=== PATIENT | male | born 1980 | race Caucasian/White ===

== ENCOUNTER 2019-08-23 12:58 | Emergency (ER) | payer OTHER ==
[~2019-08-23] VITALS: Ht 185.4 cm; Wt 81.7 kg
--- NOTE | ~2019-08-23 | EMS ---
[facility] [address] [place] [address] EMS Patient Care Report Name: THERESE GRISSOM Room #: REG [facility] JOSEPHAmna#: [id number] Admission: 08/23/19 Attend Phys: Discharge: Date of : 84 Report #: [id number] THIS REPORT FOR: //name// Report Transmitted: 08/23/2019 13:40 EMS Care Summary [place], [place]/[facility] Incident [id number] @ 08/23/2019 12:34 Incident Location [address] [place] [id number] Patient THERESE GRISSOM Male, 38 Years 1980 Patient Address HOMELESS Patient History Attention Deficit Hyperactivity Disorder (ADHD), Patient Allergies No known allergies, Patient Medications Adderall, Chief Complaint PSYCH Disposition Transported No Lights/Golden Dispatch Reason Overdose/Poisoning/Ingestion Transported To [facility] Narrative DISPATCHED TO AN OVERDOSE. ARRIVED ON SCENE TO FIND MALE PATIENT SITTING AGAINST THE WALL OF A BUSINESS. MALE SAID THAT HE WAS THIRSTY AND CANNOT STOP TALKING TO HIMSELF. HE DENIED DRUG AND ALCOHOL USE. HE SAID HE WOULD LIKE TO BE SEEN AT THE HOSPITAL. PATIENT WAS ASSISTED IN GETTING IN THE AMBULANCE, SEATED ON THE BENCH, SECURED WITH SEATBELTS AND VITALS WERE OBTAINED. PATIENT WAS [facility] [address] [place] [address] EMS Patient Care Report Name: THERESE GRISSOM Room #: REG ER Javed#: [id number] Admission: 08/23/19 Attend Phys: Discharge: Date of : 84 Report #: [id number] TRANSPORTED AND HOSPITAL WITH VITALS MONITORED. UPON ARRIVAL PATIENT WAS ASSISED IN WALKING INTO THE ED AND SEATED ON A HALLWAY BED. PATEINT CARE WAS TURNED OVER TO ED NURSING STAFF. Initial Vitals @12:41P: 105,R: 18,BP: 147/92,GCS: 14,SpO2: 97,Revised Trauma: 12, @12:48P: 105,R: 18,BP: 130/86,Pain: 0/10,GCS: 14,CO: 3,SpO2: 96,Revised Trauma: 12, Assessments @12:39MENTAL:Hallucinations,Person Oriented,Time Oriented,Event Oriented,Place Oriented,SKIN:No Abnormalities,HEENT:Head/Face: No Abnormalities,Eyes: No Abnormalities,Neck/Airway: No Abnormalities,LUNG SOUNDS:General: No Abnormalities,Left Upper: No Abnormalities,Right Upper: No Abnormalities,Left Lower: No Abnormalities,Right Lower: No Abnormalities,ABDOMEN:General: No Abnormalities,Left Upper: No Abnormalities,Right Upper: No Abnormalities,Left Lower: No Abnormalities,Right Lower: No Abnormalities,PELVIS//GI:No Abnormalities,EXTREMITIES:Left Arm: No Abnormalities,Right Arm: No Abnormalities,Left Leg: No Abnormalities,Right Leg: No Abnormalities,PULSE:NEURO:No Abnormalities, Impression Behavioral/psychiatric episode Procedures @12:39ALS AssessmentResponse: UnchangedSucceeded Timeline 12:31,Call Received 12:31,Dispatch Notified 12:34,Dispatched 12:34,En Route 12:37,On Scene 12:39,At Patient 12:39,ALS Assessment,Response: UnchangedSucceeded, 12:41,BP: 147/92 M,PULSE: 105,RR: 18 R,SPO2: 97 Ox,ETCO2: ,BG: ,PAIN: ,GCS: 14, 12:46,Depart Scene 12:48,BP: 130/86 M,PULSE: 105,RR: 18 R,SPO2: 96 Ox,ETCO2: ,BG: ,PAIN: 0,GCS: 14, 12:54,At Destination 13:08,Call Closed Disclaimer v1.1 Copyright 2020 [employer] This EMS Care Summary contains data elements from the applicable legal record (which may be displayed differently). It is designed to provide pertinent [address] [address] EMS Patient Care Report Name: THERESE GRISSOM Room #: REG YOMAIRA Burt#: [id number] Admission: 08/23/19 Attend Phys: Discharge: Date of : 84 Report #: [id number] information for the following purposes: continuity of care, clinical quality, and state data reporting. The complete legal record is available to ED staff and administrators of the receiving hospital in [employer]'s Patient Tracker. All data is provided "as is."
[2019-08-23] MEDS ORDERED: ADDERALL 30 MG30 MG PO (13:34)
[2019-08-23] MEDS ORDERED: TRAZODONE 150150 M1 PO (13:35)
[2019-08-23] MEDS ORDERED: ALPRAZOLAM XR3 MG PO (13:35)
[2019-08-23 14:45] LABS: AMP/METHAMP POSITIVE (Negative); BARBITURATES Negative (Negative); BENZODIAZEPINES Negative (Negative); COCAINE Negative (Negative); METHADONE Negative (Negative); OPIATES Negative (Negative); PCP Negative (Negative)
[2019-08-23 15:16] LABS: URINE BILIRUBIN NEGATIVE (Negative); URINE BLOOD 3+ (Negative); URINE CLARITY CLEAR; URINE COLOR YELLOW; URINE GLUCOSE-RANDOM* NEGATIVE (Negative); URINE KETONES NEGATIVE (Negative); URINE LEUKOCYTES-REFLEX NEGATIVE (Negative); URINE NITRITE-REFLEX NEGATIVE (Negative); URINE PROTEIN (DIPSTICK) NEGATIVE (Negative); URINE SPECIFIC GRAVITY >= 1.030 (1.005-1.035)
[2019-08-23 15:27] LABS: URINE RBC 3-10 Few /HPF (0-2)
[2019-08-23 15:29] LABS: BACTERIA-REFLEX 1-9 Few /HPF (None Seen); CASTS None Seen /LPF (None Seen); CRYSTALS None Seen /LPF (None Seen); SQUAMOUS None Seen /LPF (0-3); URINE WBC-REFLEX None Seen /HPF (0-5)
[2019-08-23 16:33] LABS: ABSOLUTE NEUTROPHILS 4.5 thou/uL (1.4-8.2); BASOPHILS 0.7 % (0.0-2.0); EOSINOPHILS 3.3 % (0.0-3.0); HEMATOCRIT 45.3 % (42.0-52.0); HEMOGLOBIN 15.3 gm/dL (14.0-18.0); LYMPHOCYTES 25.1 % (24.0-44.0); MCH 30.1 pg (26.0-34.0); MCHC 33.8 g/dL (28.0-37.0); MCV 89.2 fL (80.0-100.0); MONOCYTES 11.4 % (1.0-8.0); PLATELET COUNT 288 thou/uL (150-400); POLYS 59.5 % (36.0-66.0); RBC 5.09 mil/uL (4.50-6.00); RDW 13.3 % (10.5-14.5); WBC 7.5 thou/uL (4.0-11.0)
[2019-08-23 16:45] LABS: CALCIUM 8.7 mg/dL (8.5-10.1); POTASSIUM 3.2 mmol/L (3.5-5.1)
[2019-08-24 11:37] VITALS: BP 120/78
== END 2019-08-24 11:39 | disposition still patient (30) ==
LOC: ER 12:58
PROVIDERS: Nurse Practitioner Family
DX: F15.10 Other stimulant abuse, uncomplicated (principal); F29 Unspecified psychosis not due to a substance or known physiological condition; F17.210 Nicotine dependence, cigarettes, uncomplicated; Z79.899 Other long term (current) drug therapy